=== PATIENT | male | born 1990 | race Caucasian/White ===

== ENCOUNTER 2022-05-22 08:14 | Emergency (ER) | payer OTHER, SELFPAY ==
--- NOTE | ~2022-05-22 | CT_ITS ---
EXAMINATION: CT abdomen pelvis wo con DATE: 05/22/2022 09:31 INDICATION: Left lower quadrant abdominal pain. TECHNIQUE: Computed tomography (CT) of the abdomen and pelvis was performed without intravenous contr ast. Automated exposure control and iterative reconstruction technique were employed. The dose-length product was 966.47 mGy-cm. COMPARISON: None. FINDINGS: The visualized portions of the lung bases demonstrate minimal atelectasis. No pleural effus ion. The heart size is normal. No pericardial effusion. There is diffuse hepatic steatosis. The splee n, gallbladder, pancreas, adrenal glands, and right kidney are normal. There is mild left hydronephro sis and hydroureter. There is a 5 mm stone at left ureterovesicular junction. There are bilateral ing uinal hernias containing fat. There are no dilated loops of bowel. The appendix is normal. There are no pathologically enlarged lymph nodes. There is no free intraperitoneal fluid. There is mild lumbar spondylosis. IMPRESSION: 1. 5 mm stone at left ureterovesicular junction with mild left hydronephrosis and hydroureter. 2. Bilateral inguinal hernias containing fat. Reviewed, dictated and finalized at location A. IMPRESSION: 1. 5 mm stone at left ureterovesicular junction with mild left hydronephrosis a nd hydroureter. 2. Bilateral inguinal hernias containing fat.
[2022-05-22 08:29] VITALS: BP 151/102; PULSE 83; RESP 18; TEMP 36.6; O2SAT 98
[2022-05-22 08:38] VITALS: BP 160/100; O2SAT 98
--- NOTE | 2022-05-22 08:41 | PC.NURSE ---
Pt states that he had urinated out a kidney stone last Thursday night. States he could tell by the increase frequency of urinating. States the pain feels similar now, but does not have any urinary symptoms. States he felt nauseous but has not vomited. States he took tylenol at 0400 and states it did help initially but the pain has started to worsen in the last few hours. States he has increased water intake.
--- NOTE | 2022-05-22 08:54 | ED.ABDPAIN ---
HPI - Abdominal Pain General Chief Complaint: Abdominal Pain <BETTY Salazar Last Filed: 05/22/22 10:10> Stated Complaint: Kidney stone <BETTY Salazar Last Filed: 05/22/22 10:10> Time Seen by Provider: 05/22/22 08:54 <Claudio Espitia PA-C - Last Filed: 05/22/22 10:10> History of Present Illness HPI narrative: This is a 32-year-old male presents the ED with chief complaint of left lower quadrant abdominal pain x3 hours. Patient states this woke him up out of his sleep. He states that there is pain radiating into the left flank area. There is also some suprapubic pain. Patient states that he has had kidney stones in the past and states this feels very similar. He reports pain at a 7-8 out of 10, waxes and wanes in severity. Reports some nausea but no vomiting or diarrhea. Denies fevers, chills, urinary symptoms. <BETTY Salazar Last Filed: 05/22/22 10:10> Related Data Allergies/Adverse Reactions: Allergies Allergy/AdvReac Type Severity Reaction Status Date / Time No Known Allergies Allergy Verified 05/22/22 08:32 <BETTY Salazar Last Filed: 05/22/22 10:10> Review of Systems Review of Systems: CONSTITUTIONAL: Denies fever, chills, or sweats. EYES: Denies visual changes, redness, or discharge. ENT: Denies rhinorrhea, congestion, sore throat, or otalgia. CARDIOVASCULAR: Denies chest pain, palpitations, or edema. RESPIRATORY: Denies cough or dyspnea. GASTROINTESTINAL: Endorses abdominal pain, nausea. denies vomiting or diarrhea. GENITOURINARY: Denies dysuria or hematuria. SKIN: Denies rash or itching. MUSCULOSKELETAL: Denies back pain, joint pain, or myalgia. NEUROLOGIC: Denies headache, numbness, dizziness, or weakness. PSYCHIATRIC: Denies anxiety or depression. <BETTY Salazar Last Filed: 05/22/22 10:10> Exam Narrative: GENERAL: Well-appearing, well-nourished, and in no acute distress. No diaphoresis HEAD: Normocephalic, atraumatic. EYES: PERRLA and EOMI. ENT: Nares clear, no rhinorrhea or epistaxis. Mucous membranes moist. Oropharynx without tonsillar hypertrophy exudate or other lesions. NECK: Supple. No adenopathy or masses. CHEST: No respiratory distress. Clear to auscultation. No wheezes rales or rhonchi HEART: Regular rate and rhythm. No murmur heard. Normal peripheral pulses. ABDOMEN: Mild left lower quadrant and suprapubic tenderness. Negative left flank or right flank tenderness. Soft, nondistended, normal active bowel sounds. EXTREMITIES: Normal range of motion. No edema. SKIN: Warm, dry, no rash. NEURO: Alert and oriented x3. No focal deficits. PSYCH: Normal mood and affect. <Claudio Espitia PA-C - Last Filed: 05/22/22 10:10> Course STEEL SPAR OPERATOR/PA Physician Supervision For this patient encounter, I reviewed the STEEL SPAR OPERATOR or PA documentation, treatment plan, and medical decision making; and I had [id number] time with this patient. 32-year-old male presenting for evaluation of lower quadrant pain. Patient was diagnosed with a kidney stone. Stone was 5 mm and located at the left UVJ. Patient was provided medications for pain control. All questions and concerns were addressed and patient was comfortable with the plan for discharge and follow-up. <Gama Mujica MD - Last Filed: 05/22/22 18:25> Vital Signs Vital signs: Vital Signs Temperature 98 F 05/22/22 08:29 Pulse Rate 83 05/22/22 08:29 Respiratory Rate 18 05/22/22 08:29 Blood Pressure 151/102 H 05/22/22 08:29 Pulse Oximetry 98 05/22/22 08:29 Oxygen Delivery Room Air 05/22/22 08:29 Temperature 98 F 05/22/22 08:29 Pulse Rate 73 05/22/22 10:18 Respiratory Rate 16 05/22/22 10:18 Blood Pressure 130/82 05/22/22 10:18 Pulse Oximetry 98 05/22/22 10:18 Oxygen Delivery Room Air 05/22/22 08:29 <Claudio Espitia PA-C - Last Filed: 05/22/22 10:10> Vital Signs Temperature 98 F 05/22/22 08:29 Pulse Rate 83 05/22/22 08:29 Respiratory
[2022-05-22 09:13] LABS: Basophils Absolute Auto 0.1 K/mm3 (0.0-0.1); Basophils Percent Auto 0.4 % (0.2-1.2); Eosinophils Absolute Auto 0.1 K/mm3 (0-0.3); Eosinophils Percent Auto 0.6 % (0-4.4); Hematocrit 41.9 % (42.0-52.0); Hemoglobin 14.5 g/dL (14.0-18.0); Immature Granulocyte Absolute 0.07 K/mm3 (0.00-0.031); Immature Granulocyte Percent A 0.5 % (0-0.5); Lymphocytes Absolute Auto 1.36 K/mm3 (0.9-3.2); Lymphocytes Percent Auto 10.2 % (18.3-44.2); Mean Corpuscular HGB Conc 34.6 g/dl (32-36); Mean Corpuscular Hemoglobin 29.6 pg (26-34); Mean Corpuscular Volume 85.5 fl (80-100); Mean Platelet Volume 9.4 fl (7.4-10.4); Monocytes Absolute Auto 0.8 K/mm3 (0.1-0.6); Monocytes Percent Auto 5.9 % (2.6-8.5); Neutrophils Percent Auto 82.4 % (45.5-73.1); Platelet Count Result 299 k/mm3 (150-375); Red Cell Distribution Width 13.1 % (11.5-14.5); White Blood Count 13.3 K/mm3 (4.5-10.0)
[2022-05-22] MEDS: ONDANSETRON INJ 4 MG/2 ML VIAL IV PUSH (09:20)
[2022-05-22] MEDS: MORPHINE SULFATE (*CRX) 4 MG/ML INJ IV PUSH (09:22)
[2022-05-22 09:23] LABS: Alanine Aminotransferase 74 U/L (6-50); Albumin Level 4.5 g/dL (3.5-5.1); Alkaline Phosphatase 83 U/L (38-126); Anion Gap 7 mmol/L (8-16); Aspartate Amino Transferase 42 U/L (17-59); Bilirubin,Total 0.6 mg/dL (0.2-1.3); Blood Urea Nitrogen 8 mg/dL (9-20); Calcium 8.5 mg/dL (8.4-10.2); Carbon Dioxide 24 mmol/L (22-30); Chloride 101 mmol/L (98-107); Estimated CRCL calculation 180 ml/min; Estimated Glomerular Filt Rate > 60; Glucose 118 mg/dL (65-110); Potassium 3.4 mmol/L (3.4-5.0); Sodium 132 mmol/L (137-145)
[2022-05-22 09:49] LABS: Add Urine Microscopic? YES; Appearance Urine Cloudy (Clear); Bacteria Urine None Seen /hpf; Bilirubin Urine Negative (Negative); Blood Urine 2+ (Negative); Color Urine Yellow (Yellow); Glucose Urine UA Negative (Negative); Ketones Urine Trace mg/dL (Negative); Leukocyte Esterase Ur Negative LEU/UL (Negative); Mucus Urine Present /lpf; Nitrate Urine Negative (Negative); Protein Urine Negative (Negative); Specific Grav Ur 1.019 (1.001-1.035); Squamous Epithelial Cell Urine None seen /hpf (Few); Urobilinogen Urine 0.2 mg/dL (<2.0); WBC Urine 0-5 /hpf
[2022-05-22 09:57] VITALS: BP 133/95; O2SAT 97
[2022-05-22 10:00] VITALS: O2SAT 97
[2022-05-22 10:01] VITALS: BP 135/88; O2SAT 96
[2022-05-22 10:18] VITALS: BP 130/82; PULSE 73; RESP 16; O2SAT 98
== END 2022-05-22 10:23 | disposition home or self-care (01) ==
PROVIDERS: Emergency Medicine; Emergency Provider Physician Assistant
DX: N13.2 Hydronephrosis with renal and ureteral calculous obstruction (principal); K40.20 Bilateral inguinal hernia, without obstruction or gangrene, not specified as recurrent
CPT/HCPCS: 36415; 74176; 80053; 81001; 85025; 96374; 96375; 99284; J2270; J2405